=== PATIENT | male | born 1990 | race American Indian/Alaskan Native ===

== ENCOUNTER 2018-01-20 21:36 | Emergency (ER) | payer SELFPAY ==
[2018-01-20 22:03] VITALS: RESP 18; TEMP 98.5
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
[2018-01-20 22:40] LABS: BASO % 0.7 % (0.0-2.0); EOS # 0.1 K/uL (0.0-0.7); HEMOGLOBIN 14.3 g/dL (12.0-18.0); LYMPH # 2.8 K/uL (1.0-4.3); LYMPH % 40.4 % (20.0-40.0); MEAN CELL VOLUME 96.2 fl (80.0-94.0); MEAN CORPUSCULAR HEMOGLOBIN 32.4 pg (27.0-31.0); MEAN CORPUSCULAR HGB CONC 33.7 g/dL (33.0-37.0); MEAN PLATELET VOLUME 8.9 fl (7.2-11.7); MONO # 0.6 K/uL (0.0-0.8); MONO % 8.6 % (0.0-10.0); NEUT # 3.3 K/uL (1.8-7.0); NEUT % 48.3 % (50.0-75.0); RBC 4.4 Mil/uL (4.40-5.90); WHITE BLOOD COUNT 6.9 K/uL (4.8-10.8)
[2018-01-20 22:52] LABS: ALB/GLOB RATIO 1.3 (1.0-2.1); ALBUMIN 4.4 g/dL (3.5-5.0); ALT/SGPT 34 U/L (21-72); AST/SGOT 37 U/L (17-59); BLOOD UREA NITROGEN 13 mg/dl (9-20); CALCIUM 10.1 mg/dL (8.4-10.2); GFR NON-AFRICAN AMERICAN > 60
[2018-01-20 23:12] LABS: BARBITURATES, UR NEGATIVE (NEGATIVE); BENZODIAZEPINES, UR NEGATIVE (NEGATIVE); OPIATES, UR NEGATIVE (NEGATIVE); PHENCYCLIDINE, UR NEGATIVE (NEGATIVE)
[2018-01-20 23:13] LABS: URINE AMORPHOUS SEDIMENT RARE /ul (<OCC); URINE BACTERIA RARE (<OCC); URINE BILIRUBIN NEGATIVE (NEGATIVE); URINE BLOOD NEGATIVE (NEGATIVE); URINE CLARITY CLOUDY (Clear); URINE COLOR YELLOW (YELLOW); URINE GLUCOSE (UA) NEG (Normal); URINE LEUKOCYTE ESTERASE NEG Leu/uL (Negative); URINE PROTEIN NEGATIVE (NEGATIVE)
[2018-01-21 01:31] VITALS: BP 118/76; PULSE 71
[2018-01-21 01:36] VITALS: O2SAT 97
== END 2018-01-21 01:31 | disposition home or self-care (01) ==
LOC: H.ER 21:36
DX: F39 Unspecified mood [affective] disorder (principal); F90.9 Attention-deficit hyperactivity disorder, unspecified type
CPT/HCPCS: 80053; 81003; 85025; 99283; G0480

== ENCOUNTER 2018-01-22 00:53 | Inpatient (IN) | payer MEDICAID ==
[2018-01-22 01:10] VITALS: O2SAT 100
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
[2018-01-22 02:30] LABS: BASO % 0.9 % (0.0-2.0); EOS # 0.3 K/uL (0.0-0.7); EOS % 4.9 % (0.0-4.0); LYMPH # 2.6 K/uL (1.0-4.3); MEAN CORPUSCULAR HEMOGLOBIN 32.6 pg (27.0-31.0); MEAN CORPUSCULAR HGB CONC 33.6 g/dL (33.0-37.0); MEAN PLATELET VOLUME 9.3 fl (7.2-11.7); MONO # 0.3 K/uL (0.0-0.8); MONO % 5.7 % (0.0-10.0); NEUT # 2.2 K/uL (1.8-7.0); NEUT % 40.5 % (50.0-75.0); NRBC % 0.1 % (0.0-0.0); RBC 4.59 Mil/uL (4.40-5.90); RED CELL DISTRIBUTION WIDTH 14.1 % (11.5-14.5); WHITE BLOOD COUNT 5.5 K/uL (4.8-10.8)
[2018-01-22 02:56] LABS: ALB/GLOB RATIO 1.3 (1.0-2.1); ALBUMIN 4.5 g/dL (3.5-5.0); ALT/SGPT 29 U/L (21-72); AST/SGOT 37 U/L (17-59); BLOOD UREA NITROGEN 10 mg/dl (9-20); CALCIUM 9.6 mg/dL (8.4-10.2); GFR NON-AFRICAN AMERICAN > 60
[2018-01-22 02:59] LABS: SQUAMOUS EPITHIAL < 1 /hpf (0-5); URINE BACTERIA RARE (<OCC); URINE BILIRUBIN NEGATIVE (NEGATIVE); URINE BLOOD NEGATIVE (NEGATIVE); URINE CLARITY SLIGHTY-CLOUDY (Clear); URINE COLOR YELLOW (YELLOW); URINE GLUCOSE (UA) NEG (Normal); URINE LEUKOCYTE ESTERASE NEG Leu/uL (Negative); URINE PROTEIN NEGATIVE (NEGATIVE); URINE UROBILINOGEN 0.2-1.0 mg/dL (0.2-1.0)
[2018-01-22 03:01] LABS: BENZODIAZEPINES, UR NEGATIVE (NEGATIVE)
[2018-01-22 03:02] LABS: BARBITURATES, UR NEGATIVE (NEGATIVE); OPIATES, UR NEGATIVE (NEGATIVE); PHENCYCLIDINE, UR NEGATIVE (NEGATIVE)
[2018-01-22] MEDS ORDERED: Magnesium Hydroxide Susp 30 ml UD PO PRN (05:50)
[2018-01-22] MEDS ORDERED: DiphenhydrAMINE 50 mg/ml Inj IM PRN (05:50)
[2018-01-22] MEDS ORDERED: Alum-Mag Hydrox-Simethicone Susp (30 mL) PO PRN (05:50)
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
--- NOTE | 2018-01-22 14:25 | CP.PCM.CON ---
History of Present Illness - History of Present Illness History of Present Illness: medical clearance for psychiatric illness cc: no medical/physical complaints HPI: 27 yo AAM no pmh here for aggression while drinking and threatening harm. he offers no physical/medical complaints. PMH: none PSH: none FH: grandmother asthma sister schizopherenia SH: smokes cigarretes smokes marijuana Drinks to excess at times no drugs Allergies: nkda Meds: reviewed Review of Systems - Review of Systems All systems: reviewed and no additional remarkable complaints except Review of Systems: in hpi Past Patient History - Past Social History Smoking Status: Heavy Smoker > 10 Cigarettes Daily Alcohol: Social Drugs: Cannabis - CARDIAC Hx Cardiac Disorders: No Hx Hypertension: No - PULMONARY Hx Tuberculosis: No - NEUROLOGICAL HX Cerebrovascular Accident: No Hx Seizures: No - HEENT Hx HEENT Problems: Yes Other/Comment: Uses eye glasses - RENAL Hx Chronic Kidney Disease: No - ENDOCRINE/METABOLIC Hx Endocrine Disorders: No - HEMATOLOGICAL/ONCOLOGICAL Hx Cancer: No Hx Human Immunodeficiency Virus (HIV): No - INTEGUMENTARY Hx Dermatological Problems: No - MUSCULOSKELETAL/RHEUMATOLOGICAL Hx Musculoskeletal Disorders: No - GASTROINTESTINAL Hx Gastrointestinal Disorders: No - GENITOURINARY/GYNECOLOGICAL Hx Sexually Transmitted Disorders: No - PSYCHIATRIC Hx Substance Use: Yes (THC) - SURGICAL HISTORY Hx Surgeries: No - ANESTHESIA Hx Anesthesia: No Meds Allergies/Adverse Reactions: Allergies Allergy/AdvReac Type Severity Reaction Status Date / Time No Known Allergies Allergy Verified 01/20/18 22:03 - Medications Medications: Current Medications Acetaminophen (Tylenol 325mg Tab) 650 mg PO Q4 PRN PRN Reason: pain level 4-7 Al Hydrox/Mg Hydrox/Simethicone (Maalox Plus 30 Ml) 30 ml PO Q4 PRN PRN Reason: Dyspepsia Diphenhydramine HCl (Benadryl) 50 mg IM Q6 PRN PRN Reason: Extrapyramidal S/S Unable PO Diphenhydramine HCl (Benadryl) 50 mg PO Q6 PRN PRN Reason: Extrapyramidal Symptoms Diphenhydramine HCl (Benadryl) 50 mg PO HS PRN PRN Reason: Sleep Haloperidol (Haldol) 5 mg PO Q4 PRN PRN Reason: Agitation Haloperidol Lactate (Haldol) 5 mg IM Q4 PRN PRN Reason: Agitation, Unable to Take PO Lorazepam (Ativan) 1 mg PO Q8H PRN PRN Reason: Anxiety/Agitation Magnesium Hydroxide (Milk Of Magnesia) 30 ml PO HS PRN PRN Reason: Constipation Risperidone (Risperdal Tab) 0.5 mg PO BID LARISSA Physical Exam - Constitutional Appears: Well, No Acute Distress - Head Exam Head Exam: ATRAUMATIC, NORMAL INSPECTION, NORMOCEPHALIC - Eye Exam Eye Exam: Normal appearance - ENT Exam ENT Exam: Mucous Membranes Moist - Respiratory Exam Respiratory Exam: Clear to Auscultation Bilateral, NORMAL BREATHING PATTERN. absent: Rales, Rhonchi, Wheezes - Cardiovascular Exam Cardiovascular Exam: REGULAR RHYTHM, +S1, +S2. absent: Systolic Murmur - GI/Abdominal Exam GI & Abdominal Exam: Normal Bowel Sounds, Soft - Extremities Exam Extremities exam: Positive for: normal inspection - Neurological Exam Neurological exam: Alert, Oriented x3 - Psychiatric Exam Psychiatric exam: Normal Affect Results - Vital Signs Recent Vital Signs: Last Vital Signs Temp 98.9 F 01/22/18 09:15 Pulse 69 01/22/18 09:15 Resp 18 01/22/18 09:15 BP 138/66 01/22/18 09:15 Pulse Ox 100 01/22/18 05:36 - Labs Result Diagrams: 01/22/18 02:14 01/22/18 02:14 Labs: Laboratory Results - last 24 hr 01/22/18 01/22/18 01/22/18 02:14 02:14 02:14 WBC 5.5 RBC 4.59 Hgb 15.0 Hct 44.5 MCV 97.0 H MCH 32.6 H MCHC 33.6 RDW 14.1 Plt Count 156 MPV 9.3 Neut % (Auto) 40.5 L Lymph % (Auto) 48.0 H Baxter % (Auto) 5.7 Eos % (Auto) 4.9 H Baso % (Auto) 0.9 Neut # (Auto) 2.2 Lymph # (Auto) 2.6 Baxter # (Auto) 0.3 Eos # (Auto) 0.3 Baso # (Auto) 0.0 Sodium 140 Potassium 4.4 Chloride 103 Carbon Dioxide 27 Anion Gap 14 BUN 10 Creatinine 0.9 Est GFR ( Amer) > 60 Est GFR (Non-Af Amer) > 60 Random Glucose 80 Calcium 9.6 Total Bilirubin 0.3 AST 37 ALT 29 Alkaline Phosphatase 50 Total Protein 7.9 Albumin 4.5 Globulin 3.5 Albumin/Globulin Ratio 1.3 Urine Color Urine Clarity Urine pH Ur Specific [place] Urine Protein Urine Glucose (UA) Urine Ketones Urine Blood Urine Nitrate Urine Bilirubin Urine Urobilinogen Ur Leukocyte Esterase Urine RBC (Auto) Urine Microscopic WBC Ur Squamous Epith Cells Urine Bacteria Urine Opiates Screen Negative Urine Methadone Screen Negative Ur Barbiturates Screen Negative Ur Phencyclidine Scrn Negative Ur Amphetamines Screen Negative U Benzodiazepines Scrn Negative U Oth Cocaine Metabols Negative U Cannabinoids Screen Positive H Alcohol, Quantitative 44 H 01/22/18 02:14 WBC RBC Hgb Hct MCV MCH MCHC RDW Plt Count MPV Neut % (Auto) Lymph % (Auto) Baxter % (Auto) Eos % (Auto) Baso % (Auto) Neut # (Auto) Lymph # (Auto) Baxter # (Auto) Eos # (Auto) Baso # (Auto) Sodium Potassium Chloride Carbon Dioxide Anion Gap BUN Creatinine Est GFR ( Amer) Est GFR (Non-Af Amer) Random Glucose Calcium Total Bilirubin AST ALT Alkaline Phosphatase Total Protein Albumin Globulin Albumin/Globulin Ratio Urine Color Yellow Urine Clarity Slighty-cloudy Urine pH 6.0 Ur Specific [place] 1.016 Urine Protein Negative Urine Glucose (UA) Neg Urine Ketones Negative Urine Blood Negative Urine Nitrate Negative Urine Bilirubin Negative Urine Urobilinogen 0.2-1.0 Ur Leukocyte Esterase Neg Urine RBC (Auto) 1 Urine Microscopic WBC 3 Ur Squamous Epith Cells < 1 Urine Bacteria Rare Urine Opiates Screen Urine Methadone Screen Ur Barbiturates Screen Ur Phencyclidine Scrn Ur Amphetamines Screen U Benzodiazepines Scrn U Oth Cocaine Metabols U Cannabinoids Screen Alcohol, Quantitative Assessment & Plan - Assessment and Plan (Free Text) Assessment: 27 yo with no PMH. continue psychiatric care no medical issues.
[2018-01-23 08:03] LABS: HDL CHOLESTEROL 69 MG/DL (30-70)
[2018-01-23 08:14] LABS: LDL CHOLESTEROL < 30 mg/dL (0-129)
[2018-01-23 08:20] LABS: T4 6.27 ug/dl (5.5-11.0)
--- NOTE | 2018-01-23 13:58 | PCM.PYCHPN ---
Psychiatric Progress Note - Psychiatric Progress Note Patient Chief Complaint: pt has been less anxious and reports decrease in hallucinations with risperdal and denies side effects to meds .pt denies suicidal ideation. Medication Change: Yes (srart risperdal) Medical Record Reviewed: Yes Mental Status Examination - Cognitive Function Orientation: Person, Place, Situation Memory: Intact Attention: Poor Concentration: Poor Association: WNL Fund of Knowledge: WNL - Mood Mood: Anxious - Affect Affect: Constricted - Formal Thought Process Formal Thought Process: Hallucinations, Paranoia, Flight of ideas - Suicidal Ideation Suicidal Ideation: No - Homicidal Ideation Homicidal Ideation: No Goal/Treatment Plan - Goal/Treatment Plan Progress Toward Problem(s) and Goals/Treatment Plan: will start pt on risperdal 0.5 mg bid and engage pt in therapy and pt agreed . monitor for alcohol withdrawl and ativan proticol. hospitalist consult.
--- NOTE | 2018-01-24 15:05 | PCM.PYCHPN ---
Psychiatric Progress Note - Psychiatric Progress Note Patient seen today, length of contact: pt evaluated discussed with team chart reviewed Patient Chief Complaint: I have trouble controling my temper Problems Identified/Issues Discussed: pt on evaluation with treatment team, reported that he has had legal issues due to poor impulse control and labile affect,pt also reported he has been experiencing auditory hallucinations,of music, he indicated feeling paranoid at times particularly when using cannabis, motivational therapy provided to patient in reference to cannabis use , discussed increasing dose of risperidone for mood stabilization no reported side effects, pt denied any current command hallucinations, denied thoughtsof self harm or homicidal ideation DSM 5 Symptoms Update: bipolar disorder cannabis use disorder Medication Change: Yes (increase risperdal) Medical Record Reviewed: Yes Mental Status Examination - Cognitive Function Orientation: Person, Place, Situation Memory: Intact Attention: WNL Concentration: WNL Association: WNL Fund of Knowledge: WNL Decription of patient's judgement and insights: partial insight , poor judgment - Mood Mood: Anxious - Affect Affect: Constricted - Speech Speech: Appropriate - Formal Thought Process Formal Thought Process: Hallucinations, Paranoia, Circumstantial - Suicidal Ideation Suicidal Ideation: No - Homicidal Ideation Homicidal Ideation: No Goal/Treatment Plan - Goal/Treatment Plan Need for Continued Stay: Discharge may exacerbated symptoms Progress Toward Problem(s) and Goals/Treatment Plan: increase risperdal to 2mg qhs start cogentin 0.5mg qhs motivational group and supportive therapy
--- NOTE | 2018-01-25 17:44 | PCM.PYCHPN ---
Psychiatric Progress Note - Psychiatric Progress Note Patient seen today, length of contact: pt evaluated discussed with team chart reviewed Patient Chief Complaint: I need help with my anger Problems Identified/Issues Discussed: pt evaluated, reported partial clearing off of the auditory hallucinations , no reported side effects of risperidone, motivational therapy provided in reference to cannabis use , discussed with pt its effect on current mental status , di scussed with pt starting depakote for poor impulse control , pt agred to start anger management therapy on discharge pt denied any current command hallucinations, denied thoughtsof self harm or homicidal ideation DSM 5 Symptoms Update: impulse control disorder rule out bipolar disorder antisocial personality disorder cannabis use disorder Medication Change: Yes (start depakote) Medical Record Reviewed: Yes Mental Status Examination - Cognitive Function Orientation: Person, Place, Situation Memory: Intact Attention: WNL Concentration: WNL Association: WNL Fund of Knowledge: WNL Decription of patient's judgement and insights: partial insight , poor judgment - Mood Mood: Anxious - Affect Affect: Constricted - Speech Speech: Appropriate - Formal Thought Process Formal Thought Process: Hallucinations, Paranoia, Circumstantial - Suicidal Ideation Suicidal Ideation: No - Homicidal Ideation Homicidal Ideation: No Goal/Treatment Plan - Goal/Treatment Plan Need for Continued Stay: Discharge may exacerbated symptoms Progress Toward Problem(s) and Goals/Treatment Plan: start depakot 500mg qhs risperdal to 2mg qhs cogentin 0.5mg qhs motivational group and supportive therapy
[2018-01-25] MEDS ORDERED: Divalproex 500 mg DR(BID formulation) PO SCH (22:00)
--- NOTE | 2018-01-26 16:43 | PCM.PYCHPN ---
Psychiatric Progress Note - Psychiatric Progress Note Patient seen today, length of contact: pt evaluated discussed with team chart reviewed Patient Chief Complaint: I feel calmer with the medicine Problems Identified/Issues Discussed: pt evaluated, reported less irritable and less angry, reporting good response to depakote, no side effects ,partial clearing off of the auditory hallucinations , motivational therapy provided in reference to cannabis use , , discussed with pt increasing dose of depakote , for poor impulse control ,treatment plan discussed with girl friend upon patient consent , she reported pt has spending sprees, labile affect periods of hyperactivity and poor sleep pt denied any current command hallucinations, denied thoughts of self harm or homicidal ideation DSM 5 Symptoms Update: bipolar I disorder mre manic with psychotic features cannabis abuse Medication Change: Yes (increase depakote) Medical Record Reviewed: Yes Mental Status Examination - Cognitive Function Orientation: Person, Place, Situation Memory: Intact Attention: WNL Concentration: WNL Association: WNL Fund of Knowledge: [facility] Decription of patient's judgement and insights: partial insight , poor judgment - Mood Mood: Anxious - Affect Affect: Constricted - Speech Speech: Appropriate - Formal Thought Process Formal Thought Process: Hallucinations, Paranoia, Circumstantial - Suicidal Ideation Suicidal Ideation: No - Homicidal Ideation Homicidal Ideation: No Goal/Treatment Plan - Goal/Treatment Plan Need for Continued Stay: Discharge may exacerbated symptoms Progress Toward Problem(s) and Goals/Treatment Plan: increase depakot 1000 mg qhs risperdal to 2mg qhs cogentin 0.5mg qhs motivational group and supportive therapy Estimated Date of D/C: 01/28/18
[2018-01-26] MEDS: Divalproex 500 mg ER (ONCE DAILY formulation) PO SCH (21:11)
--- NOTE | 2018-01-27 13:08 | PCM.PYCHPN ---
Psychiatric Progress Note - Psychiatric Progress Note Patient seen today, length of contact: pt evaluated discussed with team chart reviewed Patient Chief Complaint: I feel better with depakote Problems Identified/Issues Discussed: pt evaluated, reported good response to depakote, no repored side effects, speech is less pressured , mood less labile, reported clearing off of the auditory hallucinations, discussed joining [facility] on discharge pt denied any current command hallucinations, denied thoughts of self harm or homicidal ideation DSM 5 Symptoms Update: bipolar I disorder cannabis use disorder Medication Change: No (increase depakote) Medical Record Reviewed: Yes Mental Status Examination - Cognitive Function Orientation: Person, Place, Situation Memory: Intact Attention: WNL Concentration: WNL Association: WNL Fund of Knowledge: WN Decription of patient's judgement and insights: partial insight , poor judgment - Mood Mood: Anxious - Affect Affect: Constricted - Speech Speech: Appropriate - Formal Thought Process Formal Thought Process: Paranoia, Circumstantial - Suicidal Ideation Suicidal Ideation: No - Homicidal Ideation Homicidal Ideation: No Goal/Treatment Plan - Goal/Treatment Plan Need for Continued Stay: Discharge may exacerbated symptoms Progress Toward Problem(s) and Goals/Treatment Plan: depakote 1000 mg qhs follow up on depakote level risperdal 2mg qhs cogentin 0.5mg qhs motivational group and supportive therapy Estimated Date of D/C: 01/28/18
[2018-01-27] MEDS: Divalproex 500 mg ER (ONCE DAILY formulation) PO SCH (21:53)
--- NOTE | 2018-01-28 11:30 | PCM.PYCHDC ---
Mental Status Examination - Mental Status Examination Orientation: Person, Place, Situation Memory: Intact Mood: Neutral Affect: Broad Speech: Appropriate Attention: WNL Concentration: WNL Association: WNL Fund of Knowledge: WNL Formal Thought Process: No Impairment Description of patient's judgement and insight: partial insight , fair judgment Psychotic Thoughts and Behaviors: pt denied any current perceptual disturbances, non elicited Suicidal Ideation: No Current Homicidal Ideation?: No Discharge Summary - Discharge Note Reason for Hospitalization: This is a 27 yr old male with h/o depression and disruptive mood outbursts and unable to focus and symptoms worsened after pt laid off from job and selfmedicating with 2 glasses of wine everyday and abusing cannabis and gettng more aggressive and paranoid towards family and brought by beverly as her and family afraid of him because of aggressive behavior. Psychiatric History (includes Medical, Family, Personal Hx): for ADHD when in school Laboratory Data: Abnormal Lab Results 01/28/18 08:42 Valproic Acid 60.6 Consultations:: List each consultation separately and include: 1. Reason for request. 2. Findings. 3. Follow-up Summary of Hospital Course include:: 1. Description of specific treatment plan utilized for patients during their course of treatmen. 2. Summarize the time- course for resolution of acute symptoms and/or regressed behaviors. 3. Describe issues identified and worked on during hospitalization. 4. Describe medication utilized. 5. Describe medical problems identified and treated. 6. Reassessment of suicide risk Summary of Hospital Course: pt on admission was started on risperidone 2mg pt reported episodes of impulsivity , anger and irritability , poor impulse control meeting was held with girl friend upon his consent and she reported episodes of increased activity, poor sleep , spending sprees, pt also has family history of bipolar disorder pt was started on depakote, it was increased to 1000mg qhs pt was compliant with treatment, attended groups, no reported side effects of medication reported clearing odff of the auditory hallucinations and more stable affect depakote level noted 60 on discharge pt mental status was stable, denied suicidal or homicidal ideation denied perceptual disturbances, agreed to start anger management therapy - Diagnosis (1) Poor impulse control Current Visit: Yes Status: Acute - Final Diagnosis (DSM 5) Condition upon Discharge: FAIR DSM 5: bipolar I disorder cannabis use disorder alcohol use disorder Disposition: HOME/ ROUTINE Follow-up Treatment Plan: [facility] Prescriptions/Medication Reconciliation: Divalproex [Depakote ER(ONCE DAILY)] 1,000 mg PO HS 30 Days #60 ter Nicotine 21 mg/24 hr [Nicoderm Cq] 1 patch TD DAILY 30 Days #30 patch risperiDONE [RisperDAL Tab] 2 mg PO HS 30 Days #30 tab - Smoking Cessation Smoking Cessation Medication prescribed: Yes - Antipsychotic Medications Pt discharged on 2 or more routine antipsychotic medications: No
[2018-01-28 14:39] VITALS: BP 112/72; PULSE 73; RESP 20; TEMP 97.2
== END 2018-01-28 15:24 | disposition home or self-care (01) | DRG 885 ==
LOC: H.ER 00:53 → H.ERHOLD 04:30 → H.PSYCH 05:45
PROVIDERS: ADMIT Psychiatry & Neurology Psychiatry; ATTEND Psychiatry & Neurology Psychiatry
PROC: HZ57ZZZ Individual Psychotherapy for Substance Abuse Treatment, Motivational Enhancement (ICD-10-PCS; principal; 2018-01-22)
PROC: HZ59ZZZ Individual Psychotherapy for Substance Abuse Treatment, Supportive (ICD-10-PCS; 2018-01-22)
PROC: GZHZZZZ Group Psychotherapy (ICD-10-PCS; 2018-01-22)
DX: F31.9 Bipolar disorder, unspecified (principal); F12.90 Cannabis use, unspecified, uncomplicated; Z72.89 Other problems related to lifestyle; F17.210 Nicotine dependence, cigarettes, uncomplicated